=== PATIENT | male | born 1985 | race Caucasian/White ===

== ENCOUNTER 2023-11-22 13:19 | Emergency (ER) | payer OTHER, SELFPAY ==
[2023-11-22 13:15] VITALS: BP 145/95; PULSE 71; RESP 18; TEMP 36.8; O2SAT 99
--- NOTE | 2023-11-22 13:15 | DI.RAD_ITS ---
Exam(s) XR SHOULDER RT COMPLETE 2+V EXAM: XR SHOULDER RT COMPLETE 2+V CLINICAL HISTORY: R shoulder injury, ?fx, +disloc. TECHNIQUE: 2D digital imaging was performed of the right shoulder. Three images were obtained. AP, Grashey, Y-view and axillary views were obtained. COMPARISON: No exams were available for comparison FINDINGS: BONES: No acute fracture is present. No bony destructive lesion is seen. JOINTS: There is elevation of the clavicle relative to the acromion consistent with a right AC joint separation. The findings are most marked on the Y and Grashey views which suggest a complete grade 3 separation. SOFT TISSUE: The visualized lungs are clear. IMPRESSION: Right AC joint separation as described above. DATA REPOSITORY: RADIATION DOSE DELIVERED:
--- NOTE | 2023-11-22 13:21 | ED.GENADUL_ITS ---
Discharge Plan Disposition Patient Disposition: Home Condition: Stable Discharge Details Clinical Impression: Separation of right acromioclavicular joint Primary Care Provider: Unknown,Unknown ED Provider: Sae Mir Home Meds and New Rx's Prescriptions: No Action mirtazapine 15 mg tablet 15 mg PO DAILY buprenorphine HCl 2 mg tablet, sublingual 2 mg sublingual DAILY buprenorphine HCl 8 mg tablet, sublingual 8 mg sublingual DAILY melatonin 3 mg capsule 3 mg PO HS PRN Discharge Instructions Instructions: Acromioclavicular Separation (ED) Additional Instructions: You were seen in the emergency department for the fall with direct impact to your right shoulder, there appears to be no fracture or dislocation, you appear of torn one of your acromioclavicular ligaments resulting in an AC separation. This does not usually require any splinting, you need to keep your shoulder moving performing gentle pendulum exercises, if you do not regain significant range of motion or having severe continued pain you may need outpatient orthopedic surgical evaluation at our offices. Please pass this discharge information to the corrections facility medical staff and I will forward this chart to our orthopedic office. Please use therapeutic dosing of Tylenol (acetamenophen) & Advil (ibuprofen) in an alternating fashion as follows: Take 1000mg of Tylenol every 6 hours without missing doses- that is 4 times per day. [place] in between the Tylenol dosings, take 400-600mg of Advil also on a 6 hour schedule, that is also 4 times per day. The daily maximum dosing of Tylenol is 4000mg, and the daily maximum dosing of Advil is 2400mg. This is safe to do for weeks. Please note that some common cold medications & prescription pain medications may contain acetamenophen and you need to read OTC drug labels and factor that in to maximum daily dosings. Please rest, ice, compress and elevate the shoulder is much as possible. Return to the emergency department for any severe increase in pain of the distal right arm or numbness tingling. Referrals: [facility] [Provider Group] HPI General Date/Time Provider Initiated Documentation: 11/22/23 13:21 . HPI Narrative: 38 year-old male presents to ED today by EMS/Corrections with a chief complaint of R shoulder injury- was having a footrace on recreation at corrections facility- and he tripped and fell onto his R shoulder with onset about 20-25 minutes prior to arrival. Quality described as very painful, minor abrasions to posterior R shoulder, minor abrasions to knee bandaged at facility, no radiation to chest pain, neck pain, headstrike, LOC, endorses mild nausea due to pain. Severity is described as severe. Palliating factors include nothing specific attempted. Provoking factors include nothing specific. Events leading up to the incident/Associated Symptoms: Patient is R-hand dominant. Patient not anticoagulated. Related Data Home Medications Medication Instructions Recorded Confirmed buprenorphine HCl 2 mg sublingual 2 mg sublingual DAILY 11/22/23 11/22/23 tablet buprenorphine HCl 8 mg sublingual 8 mg sublingual DAILY 11/22/23 11/22/23 tablet melatonin 3 mg capsule 3 mg PO HS PRN 11/22/23 11/22/23 mirtazapine 15 mg tablet 15 mg PO DAILY 11/22/23 11/22/23 Allergies Allergy/AdvReac Type Severity Reaction Status Date / Time No Known Allergies Allergy Unverified 11/22/23 13:20 General Stated Complaint: Orthopedic ANURAG: 3 Review of Systems All systems reviewed & are unremarkable except as noted in HPI and below Exam Narrative Exam Narrative: GENERAL APPEARANCE: Well-nourished, non-toxic, awake and alert, atraumatic, no acute distress. SKIN: Warm, pink, dry, intact, without rashes/lesions/ulcerations. HEAD: Normocephalic, atraumatic, normal hair distribution for gender/age. EYES: Pupils PERRLA, EOMs intact without nystagmus, normal conjunctiva, no exudates on lids/lashes. ENT: Nares patent, no circumoral cyanosis, no facial swelling NECK: Supple, trachea midline, painless cervical ROM. LUNGS/CHEST: Lungs CTA bilaterally- no focally diminished or absent lung sounds, non-labored respirations, normal A/P diameter, symmetrical expansion, no chest wall deformity HEART (CV/PV): Regular rate and rhythm without murmur, no peripheral edema, no JVD. ABDOMEN: Soft, non-distended, no guarding. MSK: Normal ROM, no swelling/deformity to bilateral UEs or LEs, moving all extremities without weakness, no cyanosis, spine midline without tenderness, normal curvature. R UE: Squared off appearance of right shoulder with minor abrasion to the posterior scapular area without active bleeding or gross contamination, no crepitus to proximal humerus, right radial pulse 2+, sensation intact, range of motion intact at the elbow and wrist, no midline neck tenderness/crepitus/step- offs NEURO: Mental Status AAOx4 - alert to person, place, time, events No facial droop, no forehead involvement. Motor: No focal weakness - strength 5/5 in bilateral UEs and LEs, proximal and distal, symmetric. Sensory: sensation intact to light touch globally. Gait normal: patient ambulated without ataxia into ED room. PSYCH: euthymic, cooperative, pleasant, appropriate speech Course Vital Signs Vital signs: Vital Signs Temperature 36.8 C 11/22/23 13:15 Pulse 71 11/22/23 13:15 Respiratory Rate 18 11/22/23 13:15 Blood Pressure 145/95 H 11/22/23 13:15 Pulse Oximetry 99 11/22/23 13:15 Temperature 36.8 C 11/22/23 13:15 Temperature Source Tympanic 11/22/23 13:15 Pulse 71 11/22/23 13:15 Respiratory Rate 18 11/22/23 13:15 Blood Pressure 145/95 H 11/22/23 13:15 Pulse Oximetry 99 11/22/23 13:15 Medical Decision Making This dictation utilizes [id number] dictation software and may contain unedited grammatical errors. 38 y/o M presents to ED today with a chief complaint of R shoulder injury while in a footrace in rec yard at [facility] facility. Endorses pain due to nausea, denies neck pain/headstrike. Patients' medical history: negative, otherwise healthy. Family and social history: noncontributory. Pertinent exam findings / vital signs include R UE: Squared off appearance of right shoulder with minor abrasion to the posterior scapular area without active bleeding or gross contamination, no crepitus to proximal humerus, right radial pulse 2+, sensation intact, range of motion intact at the elbow and wrist, no midline neck tenderness/crepitus/step-offs. Differential / pathologies of concern include Fracture, Dislocation, NOT concussion/TBI, Not vertebral fracture. Diagnostic studies of: -XR R Shoulder - shows no dislocation, likely A/C separation. Interventions of: -PO APAP, IV Ativan, IV Toradol, Closed Reduction with Manual Traction, Imm obilization. ED Course/Assessment/Plan: 38-year-old male presents from corrections facility where he was in the recreation yard and a foot race where he fell with direct impact to his right shoulder. He is right-hand dominant, his x-ray shows no dislocation, and shows a likely AC separation without fracture of clavicle. I counseled him on performing pendulum exercises and therapeutic dosing of Tylenol and ibuprofen and stated that if he was still having range of motion difficulty within about 2 weeks that he may need an outpatient surgical evaluation. I informed his corrections officers about this and they will pass along his discharge paperwork which contains this information to the medical staff at the snf. Findings not consistent with fracture, dislocation, NV compromise. Disposition of Separation of right acromioclavicular joint Patient verbalized understanding of the plan and return to ED criteria and engaged in shared decision making. Medical Records Medical records reviewed: Yes I reviewed the patient's medical records. Imaging Data Radiologic Study: Attestation: I personally reviewed and interpreted this imaging study as follows: Imaging: X-Ray Quality:SDOH Health Related Social Needs: No Data to Display PFSH All Active Problems (Updated 11/22/23 @ 14:26 by ALVIN Carreon) Separation of right acromioclavicular joint (Acute) Social History Smoking/Tobacco Use Status: Former Tobacco Use Smoking risk assessment performed?: Yes Substance use type: does not use and heroin Housing: other
[2023-11-22] MEDS: Acetaminophen 500 MG TAB 1000 MG PO (13:42)
[2023-11-22] MEDS: LORazepam 2 MG/ML VIAL 1 MG IVP (13:43)
[2023-11-22] MEDS: Ketorolac 15 MG/ML VIAL IVP (13:44)
--- NOTE | 2023-11-22 15:05 | DI.VRAD_ITS ---
PROCEDURE INFORMATION: Exam: XR Right Shoulder Exam date and time: 11/22/2023 2:01 PM Age: 38 years old Clinical indication: Other: R shoulder injury, ? FX, +disloc TECHNIQUE: Imaging protocol: Radiologic exam of the right shoulder. Views: 2 or more views. COMPARISON: No relevant prior studies available. FINDINGS: Bones/joints: There may be very mild elevation of the distal clavicle. There is no distinct separation. No evidence for fracture. No dislocation. Soft tissues: Normal. IMPRESSION: Probable grade 1 acromioclavicular tear. No evidence for fracture or dislocation. Dictated and Authenticated by: Linda Rizzo MD. Ordering:REGI Quevedo MD
== END 2023-11-22 14:39 | disposition home or self-care (01) ==
LOC: ER 14:40
PROVIDERS: Emergency Provider Physician Assistant
DX: S43.101A Unspecified dislocation of right acromioclavicular joint, initial encounter (principal); Z87.891 Personal history of nicotine dependence; W18.39XA Other fall on same level, initial encounter; Y93.02 Activity, running; Y92.199 Unspecified place in other specified residential institution as the place of occurrence of the external cause
CPT/HCPCS: 96374; 96375; 99284; 73030; J1885; J2060

== ENCOUNTER 2023-12-08 15:42 | Outpatient (CLI) | payer OTHER, SELFPAY ==
--- NOTE | 2023-12-08 10:00 | DI.RAD_ITS ---
Exam(s) XR CLAVICLE RT EXAM: XR CLAVICLE RT CLINICAL HISTORY: pain/injury TECHNIQUE: 2D digital imaging was performed. COMPARISON: CR,XR XR SHOULDER RT COMPLETE 2+V from 11/22/2023 FINDINGS: BONES: No acute fracture is present. No bony destructive lesion is seen. JOINTS: The AC joint is widened, more apparent than on the previous exam. There is elevation of dist al end of the scapula as well as widening of the normal coracoclavicular distance. SOFT TISSUE: Normal IMPRESSION: Acromioclavicular joint separation. DATA REPOSITORY: RADIATION DOSE DELIVERED:
== END 2023-12-08 15:43 | disposition home or self-care (01) ==
LOC: DIORS 15:43
PROVIDERS: Visit Provider Physician Assistant
DX: S43.101D Unspecified dislocation of right acromioclavicular joint, subsequent encounter (principal); X58.XXXD Exposure to other specified factors, subsequent encounter
CPT/HCPCS: 73000

== ENCOUNTER → 2024-01-13 04:24 | Outpatient (CLI) | payer OTHER, SELFPAY ==
--- NOTE | 2024-01-13 15:25 | DI.MRI_ITS ---
Exam(s) MR UPPER JOINT RT WO EXAM: MR UPPER JOINT RT WO CLINICAL HISTORY: DISLOCATION RIGHT ACROMIOCLAVICULAR JOINT S43.101D. TECHNIQUE: Multiplanar multisequence MRI was performed. COMPARISON: CR,XR XR SHOULDER RT COMPLETE 2+V from 11/22/2023 CR XR CLAVICLE RT from 12/08/2023 FINDINGS: BONES: There is mild edema seen in the distal clavicle but no fractures identified. The distal clavi edwina is superiorly located relative to the acromion. JOINTS: There is a complete tear of the acromioclavicular ligament. There is also a tear of the kassie ical clavicular ligament. The glenohumeral joint is normal. TENDONS: Supraspinatus: Supraspinatus tendinosis. No evidence of a tear. Infraspinatus: Unremarkable. Subscapularis: Tendinosis in the subscapularis tendon. Teres Minor: Unremarkable. Biceps and Morgan: Unremarkable. MUSCLES: Unremarkable. GLENOID LABRUM: Unremarkable on this noncontrast examination. SOFT TISSUES: Unremarkable. LIGAMENTS: Please see the above section under joints. OTHER: Subacromial and subdeltoid bursae are unremarkable. IMPRESSION: 1. Tears of the acromioclavicular and cortical clavicular ligaments with grade 3 AC joint separation. 2. No evidence of a rotator cuff or labral tear on this noncontrast examination. DATA REPOSITORY:
== END ==
PROVIDERS: Visit Provider Nurse Practitioner Adult Health
DX: S43.51XA Sprain of right acromioclavicular joint, initial encounter (principal); X58.XXXA Exposure to other specified factors, initial encounter
CPT/HCPCS: 73221

== ENCOUNTER 2024-11-03 05:50 | Day surgery (SDC) | payer OTHER, SELFPAY ==
[2024-11-03] VITALS (36 sets, daily range): BP systolic 109–186; BP diastolic 61–122; PULSE 72–94; RESP 8–21; TEMP 36.2–36.8; O2SAT 91–96; BMI 35.8
--- NOTE | 2024-11-03 | DI.RAD_ITS ---
Exam(s) XR SHOULDER RT 1V EXAM: XR SHOULDER RT 1V CLINICAL HISTORY: AC joint separation. TECHNIQUE: 2D digital imaging was performed. COMPARISON: CR,XR XR SHOULDER RT COMPLETE 2+V from 11/22/2023 FINDINGS: Single portable AP view of the right shoulder. No evidence of fracture or dislocation of glenohumeral joint. There is no distraction of the AC join t on this single image (as was evident on images of November 2023). There is some gas in the soft tissu es adjacent to the superior aspect of the lateral 3rd of the clavicle. This may be post operative. No other findings IMPRESSION: As above. DATA REPOSITORY: RADIATION DOSE DELIVERED:
--- NOTE | 2024-11-03 07:09 | W.ANESPRE ---
General Info Date of Service Date Performed: 11/03/24 Height: 5 ft 11 in Weight: 116.573 kg Body Mass Index (BMI): 35.8 Surgical Procedure: Operation Date: 11/03/24 07:40 Proposed Procedure Side Surgeon p Shoulder Open Acromioclavicular Joint Reconstruction w/Allograft Right Dylan Esquivel MD Meds Allergies and Home Medications Allergies Allergy/AdvReac Type Severity Reaction Status Date / Time No Known Allergies Allergy Verified 11/03/24 06:24 Home Medication ?Medication ?Instructions ?Recorded hydroxyzine HCl 25 mg tablet 50 mg PO BID 04/06/24 trazodone 50 mg tablet 150 mg PO QHS 04/06/24 methadone 10 mg tablet 120 mg PO DAILY 09/06/24 ibuprofen 800 mg tablet (IBU) 800 mg PO BID PRN 11/01/24 melatonin 3 mg capsule 3 mg PO HS PRN 11/01/24 psyllium husk (with sugar) 3.4 1 tbsp PO DAILY 11/01/24 gram/12 gram oral powder (Daily Fiber (psyllium-sucrose)) pantoprazole 20 mg tablet,delayed 20 mg PO DAILY 11/03/24 release Current Visit Medications: Current Medications Generic Name Dose Route Start Last Admin Trade Name Freq PRN Reason Stop Dose Admin Ringer's Solution 1,000 mls @ 30 mls/hr 11/03/24 06:00 IV 11/03/24 23:59 INFUSION FARIBA Cefazolin Sodium/Dextrose 2 gm in 50 mls @ 100 mls/hr 11/03/24 06:00 Ancef Duplex IVPB 11/03/24 23:59 PREOP FARIBA Tranexamic Acid/Sodium Chloride 1,000 mg in 100 mls @ 600 mls/hr 11/03/24 06:00 IVPB 11/03/24 23:59 PREOP FARIBA IV Miscellaneous Supplies 1 each 11/03/24 06:00 Iv Access IV 11/03/24 23:59 DIRECTED FARIBA Methadone HCl 120 mg 11/03/24 07:07 Methadone Liquid 10 Mg/Ml PO 11/03/24 07:08 NOW STA Sodium Chloride 0 ml 11/03/24 06:00 Normal Saline Flush 10 Ml Syr IV 11/03/24 23:59 PRN PRN Sodium Chloride 0 ml 11/03/24 06:00 Normal Saline 10 Ml Vial IJ 11/03/24 23:59 DIRECTED PRN Sterile Water 0 ml 11/03/24 06:00 Water,Injection,Sterile 10 Ml Vial IJ 11/03/24 23:59 DIRECTED PRN PFSH Active Problems Active Problems: Problem Status Onset Code No-show for appointment Acute Z91.199 Medical History Medical History Anxiety Insomnia GERD (gastroesophageal reflux disease) Hepatitis C Treated Mavrick Opioid abuse Surgical History Surgical History History of tonsillectomy History of wisdom tooth extraction Tobacco Smoking/Tobacco Use Status: Former Tobacco Use Alcohol Alcohol Intake: former Substance Use Substance use: Current Sobriety Substance use type: former substance user and heroin Vital Signs and Lab Results Vital Signs Most Recent Vital Signs in EMR: Most Recent Vital Signs Temp Pulse Resp BP Pulse Ox 36.2 C L 72 16 151/94 H 95 11/03/24 05:50 11/03/24 05:50 11/03/24 05:50 11/03/24 05:50 11/03/24 05:50 Lab Results Blood Type / Crossmatch: No Data to Display Complete Blood Count: No Data to Display Complete Metabolic Panel: No Data to Display Liver Function Panel: No Data to Display Coagulation Panel: No Data to Display Cardiac Panel: No Data to Display Arterial Blood Gas: No Data to Display Venous Blood Gas: No Data to Display Pancreas Panel: No Data to Display Thyroid Panel: No Data to Display Infectious Disease: No Data to Display Blood Cultures: No Data to Display Toxicology Panel: No Data to Display Anesthesia Assessment and Plan Anesthesia History Personal History: Unknown Anesthesia History Family History: Family History Unknown Exercise Tolerance Exercise Tolerance: Metabolic Equivalents>4 Pertinent Negatives Pertinent Negatives: No Symptoms of GERD, No Major Cardiovascular Symptoms or Complaints, No Major Pulmonary Symptoms or Complaints and No History of CVA/TIA Cardiac & Pulmonary Exam Cardiac Exam: Normal S1/S2 Heart Sounds Pulmonary Exam: Clear Bilateral Breath Sounds Implantable Cardiac Device Does patient have a Pacemaker or an ICD?: No Airway Exam Known Difficult Airway: No Mallampati Class: 3 Mouth Opening: Normal (> 3cm) Thyromental Distance: Greater than 3 cm Neck Range of Motion: Full ROM Neck Circumference: Normal Teeth Condition: Generalized Poor Dentition (none loose per pt) ASA Classification ASA Score: ASA 2 Emergency Case?: No NPO Status NPO Status: NPO Clears >2 hours, Solids >8 hours Anesthesia Plan Resuscitation Status: Full Code Anesthesia Technique: General Anesthesia Airway Planned: Endotracheal Tube Pain Management: Surgeon and patient request nerve block Monitors Used: Standard Monitors
--- NOTE | 2024-11-03 07:11 | PDOC.DSDIS_ITS ---
Date of service: 11/03/24 Discharge Plan Disposition Patient Disposition: Home Discharge Details Attending Provider: Dylan Esquivel Primary Care Provider: Elba aMtthews Home Meds and New Rx's Prescriptions: Continued methadone 10 mg tablet 120 mg PO DAILY trazodone 50 mg tablet 150 mg PO QHS hydroxyzine HCl 25 mg tablet 50 mg PO BID melatonin 3 mg capsule 3 mg PO HS PRN Daily Fiber (psyllium-sucrose) 3.4 gram/12 gram powder 1 tbsp PO DAILY ibuprofen [IBU] 800 mg tablet 800 mg PO BID PRN pantoprazole 20 mg tablet,delayed release (DR/EC) 20 mg PO DAILY Discharge Instructions Additional Instructions: Surgery planned: Right shoulder open acromioclavicular joint reconstruction with allograft 11/03/24 Activity: For 6 weeks, you should keep your arm at your side in a neutral position at all times except for physical therapy. Do not try to lift or raise your arm using your own muscles. You should use the sling most of the time unless your forearm/elbow is supported/elevated on pillows. Avoid stressing the repair with gravity. Do NOT allow the arm to dangle at your side. Physical therapy instructions: Encouraged increasing range of motion hand, wrist, and elbow. Avoid any active or passive shoulder range of motion for 3 weeks then gently progress passive shoulder range of motion below 90 degrees forward elevation. After 6 weeks, encourage increasing active assisted and then gently progress active range of motion to full after 8 weeks. No strengthening for 3+ months. Prescriptions: Continue your previously prescribed methadone as directed. May continue ibuprofen 800 mg [id number] as directed. You may use [id number] Tylenol (acetaminophen) as needed for mild pain. These pain medications may be taken all at once or in different combinations as needed. Also, recommend Colace (docusate) as a stool softener as surgery and pain medicine cause constipation. You may try [id number] diphenhydramine (Benadryl) 25-50 mg nightly as a sleep aid Dressings: Leave shoulder Band-Aid in place until follow-up. Do not shower or get wet. Follow-up: 10-[address] Esquivel Stand Alone Forms: Anesthesia Discharge Inst., Anes.Nerve Block Instructions, Ge Albright ([facility]) Referrals: Dylan Esquivel MD [ [facility] STAFF PHYSICIAN] - 11/03/24 6:00 am Discharge Orders Discharge Orders: Discharge Order (Routine); Ordered 11/03/24 Ordered By: Charlie Jack
[2024-11-03] MEDS: Lactated Ringers 1,000 ML 30 ML IV (07:15)
--- NOTE | 2024-11-03 07:25 | W.PM.OP ---
Operative Note Operative Note PRE-OP DIAGNOSIS: 1. Right high grade AC joint separation POST-OP DIAGNOSIS: same 1. Right high grade AC joint separation 2. Right distal clavicle osteolysis PROCEDURE: Right shoulder: 1. Open treatment of acromioclavicular joint dislocation with allograft, CPT# 61816 2. Open distal clavicle excision, CPT#44943 The surgical supply assistant was medically required in order to help assist in techniques above, which require positioning the arm, holding the arthroscope, and manipulating multiple instruments and sutures at the same time. This cannot be done without the help of an experienced surgical supply assistant. SURGEON: Dylan Esquivel CONTINUOUS YARN DYEING MACHINE OPERATOR: Charlie Jack ANESTHESIA TYPE: Local By Surgeon, General LMA/ETT and Primary Nerve Block Refer to Anesthesia Record ESTIMATED BLOOD LOSS: 5 PATHOLOGY: none sent COMPLICATIONS: None Patient was transported to: PACU Patient's condition: stable Implants: 2x FiberTape and Gracilis tendon allograft 4 x 260 mm Indications: The patient was diagnosed with the above conditions and appropriately indicated for surgical intervention. Please see complete medical record for details. Findings: High riding and unstable, but readily reducible distal clavicle relative to acromion. Moderate abnormal softening osteolytic distal most end of the clavicle. Procedure Description: In the operating room, general anesthesia was induced. The patient was positioned in the beachchair position. The right distal clavicle prominence was examined and could be readily reduced relative to the acromion. All bony prominences were well-padded. Preoperative antibiotics were administered. The shoulder was prepped and draped in the usual sterile fashion. The correct patient, procedure, and side of the procedure were all verified prior to incision. A moderate longitudinal incision was preinjected with 0.25% bupivacaine containing epinephrine and then opened centered over the AC joint. The distal clavicle was easily exposed in its elevated position taking care to raise full-thickness layers. Elevators used to expose the superior bone, rongeur was used to remove interposed scar tissue, and the distal end of the clavicle was inspected. It was softened and abnormally shaped consistent with painful osteolysis, and given the notable patient pain decision was made to proceed with distal clavicle excision while it was readily accessible. About 5 mm of this abnormal bone was removed with rongeur and the distal end of the clavicle was contoured purely to minimize prominence. The ends were smooth and then the wound copiously irrigated to remove any bone debris. The superior AC joint capsule was incised and continued over to the adjacent lateral acromion again raising full-thickness flaps for later repair. The graft was prepared with fiber loop on both ends on the back table measured 4 mm x 260 mm gracilis. About 1 cm off the joint margin on the acromion and from the distal clavicle excision 2 drill holes were made superior to inferior protecting inferiorly with a Park starting with a 3.5 mm drill spaced appropriately apart on both the distal end of the clavicle and medial acromion and then enlarged with a 4.2 mm drill to accommodate both the graft and FiberTapes. The 90 degree lasso was used to shuttle 2 FiberLinks, which were then used to shuttle each tail of the graft through the distal clavicle from inferior to superior taking care to even out the tails of the graft as well as the FiberTapes. This passing was repeated with the ends of the construct being draped over the superior aspect of the distal clavicle, inferior through the AC joint and then brought up through the holes in the medial acromion. There was nice anabaptism of clavicle height and excellent stability with provisional tensioning on the graft. The clavicle was held in place in the forearm supported and an initial FiberTape was tied in this position. This reduced position was maintained by the single FiberTape. The tails of the graft were weaved and then secured together with noncutting suture tape. The second FiberTape was then tied as well for backup and acting as an internal brace to the graft. There was additional length on the allograft talus which was then brought back across the AC joint and secured over the construct holes and graft distal clavicle with 0 Vicryl. The construct was examined. There was excellent reduction and alignment of the distal clavicle relative the acromion. There was no remaining distal clavicle prominence. It was quite stable to testing. The wound was copiously irrigated with normal saline and then the vancomycin saline that I have been used to prepare the graft. The preserved full-thickness deep layers were closed over the AC joint and reconstruction using 0 Vicryl [id number]. Superficial layers were copiously irrigated. Subcutaneous tissue was closed in 2-0 Monocryl buried interrupted. Skin was closed using 3-0 Monocryl running subcuticular. Skin glue was applied over the incision followed by Mepilex bandage. The patient awoke from anesthesia without complication was transferred to the recovery room in a stable condition. Date of Procedure: 11/03/24
[2024-11-03] MEDS: Methadone Liquid 10 MG/ML 120 MG PO (07:30)
--- NOTE | 2024-11-03 07:37 | W.ANESNERVE ---
Nerve Block Single Injection Procedure Date and Time Date Performed: 11/03/24 Procedure Start: 07:24 Location Where Procedure Performed Procedure Location: Day Surgery Unit Reason Performed: Postoperative Analgesia Requesting Provider: Dylan Esquivel Timeout Performed Timeout Performed: Yes Monitoring Used ECG, Blood Pressure, SpO2 and See EMR for corresponding vital signs Sterility Sterility: Hand Hygiene, Surgical Cap, Surgical Mask, Sterile Gloves, Sterile Drape/Sheet and Chlorhexidine Sedation Given During Procedure Sedation Given (Indicate Dose Given): Versed IV Dose:: 2 mg Patient Mental Status Patient Mental Status: Sedate with meaningful communication Nerve Block 1st Nerve Block: Laterality: Right Block Type: Interscalene Ultrasound Image Saved?: Yes Needle / Catheter Used: 100mm SonoPlex II Local Anesthetic Bolus (Indicate Dose Given): Lidocaine used for local infiltration of skin, Injected in 3-5ml increments after negative blood aspiration, Bupivacaine 0.25% Dose:: 10 ml and Exparel Dose:: 10 ml Additives (Indicate Dose Given): None Ultrasound: Sterile probe cover and gel used Nerve Stimulator: Supplement to Ultrasound use and No twitch or parasthesia noted < 0.5 mA Paresthesia: None Procedure Tolerated: No Complications and Patient tolerated well Procedure Outcome: Successful Performed By: Rhonda Quiroga
[2024-11-03] MEDS: ceFAZolin 2 GM/50 ML BAG IVPB (07:46)
[2024-11-03] MEDS: TRANEXAMIC ACID/SOD. CHL. 1,000 MG/100 ML BAG 600 MG IVPB (07:57)
[2024-11-03] MEDS: Bupivacaine 0.25% Pres-Free W/EPI 30 ML VIAL (09:10)
--- NOTE | 2024-11-03 11:59 | W.ANESPOSTOP ---
Postoperative Evaluation Date, Time and Location Date Performed: 11/03/24 Time Performed: 11:59 Patient Location: Day Surgery Unit Vital Signs Most Recent Imported Vital Signs: Most Recent Vital Signs Temp Pulse Resp BP Pulse Ox 36.8 C 82 16 160/83 H 94 11/03/24 11:06 11/03/24 11:10 11/03/24 11:10 11/03/24 11:06 11/03/24 11:10 Pain Score Most Recent Pain Score: Most Recent Pain Score Pain Level 0 11/03/24 11:05 Assessment Mental Status: Awake (Alert & Oriented to Patient Baseline) Airway and Respiratory Function: Patent airway with normal (patient baseline) respiratory exam Cardiovascular Function: Hemodynamically Stable Hydration Status: Adequately Hydrated Nausea & Vomiting: No Nausea or Vomiting Pain: Pt. Denies Any Pain Peripheral Nerve Block: Regional nerve block not resolved at time of post operative discharge Postoperative Comments:: encouraged cough and deep breathing.
== END 2024-11-03 13:30 | disposition home or self-care (01) ==
PROVIDERS: PCP Nurse Practitioner Adult Health; Visit Provider Student in an Organized Health Care Education/Training Program
PROC: (CPT 23130; principal; 2024-11-03 07:30)
DX: S43.101A Unspecified dislocation of right acromioclavicular joint, initial encounter (principal); M89.511 Osteolysis, right shoulder
CPT/HCPCS: 23552; 23120; 64415; 73020; J0131; J0665; J0666; J0690; J1100; J1805; J1885; J2250; J2371; J2405; J2704; J3370

== ENCOUNTER 2024-11-15 15:20 | Outpatient (CLI) | payer OTHER, SELFPAY ==
--- NOTE | 2024-11-15 14:00 | DI.RAD_ITS ---
Exam(s) XR SHOULDER RT 1V EXAM: XR SHOULDER RT 1V CLINICAL HISTORY: F/U ACJ RECONSTRUCTION. TECHNIQUE: 2D digital imaging was performed of the right shoulder. One images were obtained. AP vi ews were obtained. COMPARISON: CR,XR XR SHOULDER RT COMPLETE 2+V from 11/22/2023 CR XR SHOULDER RT 1V from 11/03/2024 FINDINGS: This is a limited examination with a single AP view obtained. BONES: No acute fracture is present. No bony destructive lesion is seen. JOINTS: No dislocation present. There is stable alignment of the acromioclavicular joint. The glenoh umeral joint is well maintained. SOFT TISSUE: Normal. IMPRESSION: No gross alignment abnormalities identified. DATA REPOSITORY: RADIATION DOSE DELIVERED:
== END 2024-11-15 15:21 | disposition home or self-care (01) ==
LOC: DIORS 15:20
PROVIDERS: PCP Nurse Practitioner Adult Health; Visit Provider Student in an Organized Health Care Education/Training Program
DX: S43.101A Unspecified dislocation of right acromioclavicular joint, initial encounter (principal); X58.XXXA Exposure to other specified factors, initial encounter
CPT/HCPCS: 73020

== ENCOUNTER 2025-01-10 14:29 | Outpatient (CLI) | payer OTHER, SELFPAY ==
--- NOTE | 2025-01-10 14:15 | DI.RAD_ITS ---
Exam(s) XR SHOULDER RT 1V EXAM: XR SHOULDER RT 1V CLINICAL HISTORY: F/U ACJ RECONSTRUCTION. TECHNIQUE: 2D digital imaging was performed of the right shoulder. One images were obtained. AP vi ews were obtained. COMPARISON: CR XR SHOULDER RT 1V from 11/15/2024 FINDINGS: BONES: There is been resection of the distal clavicle since the prior examination. No bony destructi ve lesion is seen. JOINTS: The clavicle is located 1.6 cm superior to the acromion. The glenohumeral joint appears well maintained on the single AP image. SOFT TISSUE: Normal. IMPRESSION: Limited examination of the right shoulder. Since the prior examination, there has been interval rese ction of a portion of the distal right clavicle. The distal clavicle is superiorly located measuring 1.6 cm superior to the level of the adjacent acromion. DATA REPOSITORY: RADIATION DOSE DELIVERED:
== END 2025-01-10 14:30 | disposition home or self-care (01) ==
LOC: DIORS 14:30
PROVIDERS: Visit Provider Student in an Organized Health Care Education/Training Program
DX: S43.101A Unspecified dislocation of right acromioclavicular joint, initial encounter (principal)
CPT/HCPCS: 73020

== ENCOUNTER 2025-08-08 11:54 | Outpatient (CLI) | payer OTHER, SELFPAY ==
--- NOTE | 2025-08-08 09:00 | DI.RAD_ITS ---
Exam(s) XR SHOULDER RT 1V EXAM: XR SHOULDER RT 1V CLINICAL HISTORY: F/U ACJ RECONSTRUCTION. TECHNIQUE: 2D digital imaging was performed. Four views. COMPARISON: CR XR SHOULDER RT 1V from 11/03/2024 CR XR SHOULDER RT 1V from 11/15/2024 CR XR SHOULDER RT 1V from 01/10/2025 FINDINGS: BONES: No acute fracture is present. No bony destructive lesion is seen. JOINTS: There has been resection of the distal clavicle. The clavicle again projects superior to the acromion, unchanged. There are mild degenerative changes at the glenohumeral joint. SOFT TISSUE: Normal. IMPRESSION: Stable appearance of postsurgical changes and widening of the acromioclavicular joint. DATA REPOSITORY: RADIATION DOSE DELIVERED:
== END 2025-08-08 11:55 | disposition home or self-care (01) ==
LOC: DIORS 11:54
PROVIDERS: Visit Provider Physician Assistant
DX: S43.101A Unspecified dislocation of right acromioclavicular joint, initial encounter (principal)
CPT/HCPCS: 73020